=== PATIENT | male | born 2000 | race Caucasian/White ===

== ENCOUNTER 2023-01-21 11:37 | Emergency (ER) | payer OTHER, SELFPAY ==
[2023-01-21 11:56] VITALS: BP 150/91; PULSE 72; RESP 18; TEMP 36.6; O2SAT 100
--- NOTE | 2023-01-21 12:13 | ED.EAR ---
HPI - Ear Problem General Chief complaint: Ear Stated complaint: lt ear pain Time Seen by Provider: 01/21/23 12:13 Source: patient Mode of arrival: ambulatory Limitations: no limitations History of Present Illness HPI Narrative: 22 y/o male presented for c/o left ear pain since last night. States pain is sharp and shooting. Endorses sinus congestion for about 3 days. Taking flonase for symptoms. Denies tinnitus, dizziness, n/v/d/f/c. MD Complaint: ear pain Related Data Home Medications Medication Instructions Recorded Confirmed albuterol sulfate 90 mcg/actuation 2 puff inhalation PRN Shortness of 01/21/23 01/21/23 aerosol inhaler breath Allergies Allergy/AdvReac Type Severity Reaction Status Date / Time No Known Drug Allergies Allergy Unknown none Verified 01/21/23 12:01 Review of Systems Review of Systems: CONSTITUTIONAL: Denies malaise, chills, or fever. EYES: Denies visual changes, redness, or discharge. ENT: Denies and sore throat. Reports ear pain, rhinorrhea, congestion, pressure CARDIOVASCULAR: Denies chest pain, palpitations, or edema. RESPIRATORY: Denies cough or dyspnea. SKIN: Denies rash or itching. MUSCULOSKELETAL: Denies myalgia. NEUROLOGIC: Denies headache. All systems reviewed & are unremarkable except as noted in HPI and below PMFSH Past Medical History Medical History (Updated 01/21/23 @ 12:31 by Nayeli Leon, INS[employer]ANCE [employer]ENT) No pertinent past medical history Comments At time of signature, agree with nursing past medical, surgical, social and family history. There is no relevant family history pertinent to the presenting complaint Exam Narrative: GENERAL: Well-appearing, well-nourished, and in no acute distress. HEAD: Normocephalic EYES: PERRLA, conjunctivae clear ENT: Nares clear. Mucous membranes moist. Right TM pearly tracey with dull light reflex; Left TM erythematous and bulging; no tragal or mastoid tenderness. Oropharynx normal NECK: Supple. No lymphadenopathy CHEST: Clear to auscultation, breath sounds equal. HEART: Regular rate and rhythm. No murmur heard. SKIN: Warm, dry, no rash. NEURO: Alert and oriented x3. PSYCH: Normal mood and affect Course Course Emergency Course: Patient is aware of diagnosis, understands and agrees to treatment plan. Anticipatory guidance given. Patient agrees to follow-up as directed and is aware of reasons to seek care at the emergency department. Portions of this record may have been created with voice recognition software Level of Care: Express Care Visit Vital Signs Vital signs: Vital Signs Temperature 97.9 F 01/21/23 11:56 Pulse Rate 72 01/21/23 11:56 Respiratory Rate 18 01/21/23 11:56 Blood Pressure 150/91 H 01/21/23 11:56 Pulse Oximetry 100 01/21/23 11:56 Oxygen Delivery Room Air 01/21/23 11:56 Temperature 97.9 F 01/21/23 11:56 Pulse Rate 72 01/21/23 11:56 Respiratory Rate 18 01/21/23 11:56 Blood Pressure 150/91 H 01/21/23 11:56 Pulse Oximetry 100 01/21/23 11:56 Oxygen Delivery Room Air 01/21/23 11:56 Reviewed Medical Decision Making MDM Narrative Medical decision making narrative: Left AOM. Advised supportive measures and signs/symptoms to go to the ER. Patient is appropriate for outpatient treatment and follow-up. Differential Diagnosis Differential Diagnosis: Coronavirus, strep pharyngitis, allergic rhinitis, upper respiratory tract infection, sinusitis, rhinosinusitis, nasopharyngitis, viral pharyngitis, otitis media, otitis externa, eustachian tube dysfunction, foreign body, cerumen impaction. Vital Signs Vital Signs: Vital Signs Temperature 97.9 F 01/21/23 11:56 Pulse Rate 72 01/21/23 11:56 Respiratory Rate 18 01/21/23 11:56 Blood Pressure 150/91 H 01/21/23 11:56 Pulse Oximetry 100 01/21/23 11:56 Oxygen Delivery Room Air 01/21/23 11:56 Temperature 97.9 F 01/21/23 11:56 Pulse Rate 72 01/21/23 11:56 Respiratory Rate 18 01/21/23 11:56 Blood Pressur
== END 2023-01-21 12:23 | disposition home or self-care (01) ==
PROVIDERS: Emergency Provider Nurse Practitioner Family
DX: H66.002 Acute suppurative otitis media without spontaneous rupture of ear drum, left ear (principal)
CPT/HCPCS: 99213; G0463

== ENCOUNTER 2024-02-01 09:42 | Emergency (ER) | payer OTHER, SELFPAY ==
--- NOTE | 2024-02-01 09:58 | ED.EAR ---
HPI - Ear Problem General Chief complaint: Ear Stated complaint: lt ear discomfort, blister on bottom of rt foot Time Seen by Provider: 02/01/24 10:06 Source: patient Mode of arrival: ambulatory Limitations: no limitations History of Present Illness HPI Narrative: 23 y/o male presented for c/o Left ear pain x2 days. Endorses sinus congestion and drainage and cough x4 days.Symptoms started after airplane ride. Pt has used DayQuil, NyQuil, Mucinex and Flonase. Also using neb treatments for hx asthma. Denies sob, wheezing, n/v/d/f/c. Also reports a broken blister to bottom of the right foot for over one week. Started as a fluid filled blister after walking in loose shoes in the rain. Denies swelling, redness, or drainage. States he has some discomfort when walking on it. MD Complaint: ear pain Related Data Home Medications Medication Instructions Recorded Confirmed albuterol sulfate 90 mcg/actuation 2 puff inhalation PRN PRN 01/21/23 02/01/24 aerosol inhaler Shortness Of Breath Or Wheezing Allergies Allergy/AdvReac Type Severity Reaction Status Date / Time No Known Drug Allergies Allergy Unknown none Verified 02/01/24 09:54 Review of Systems Review of Systems: CONSTITUTIONAL: Denies malaise, chills, or fever. EYES: Denies visual changes, redness, or discharge. ENT: Denies sore throat. Reports ear pain, rhinorrhea, congestion, sinus pain CARDIOVASCULAR: Denies chest pain, palpitations, or edema. RESPIRATORY: Denies dyspnea. GASTROINTESTINAL: Denies abdominal pain, nausea, vomiting, diarrhea SKIN: Denies rash or itching. MUSCULOSKELETAL: Denies myalgia. NEUROLOGIC: Denies headache. All systems reviewed & are unremarkable except as noted in HPI and below PMFSH Past Medical History Medical History Asthma No pertinent past medical history Surgical History Surgical History History of wisdom tooth extraction Family History Family History Father Hypertension Diabetes mellitus Mother Hypertension Social History Social History Smoking status: Never smoker Alcohol intake: current Substance use: never Living arrangements: with family Occupation/Education: occupation Gender identity (if verbalized by the patient): Male Comments At time of signature, agree with nursing past medical, surgical, social and family history. There is no relevant family history pertinent to the presenting complaint Exam Narrative: GENERAL: Well-appearing, well-nourished, and in no acute distress. EYES: PERRLA, conjunctivae clear ENT: Nasal congestion noted. Mucous membranes moist. Right TM pearly tracey with dull light reflex; left TM erythematous, bulging and intact; canal not erythematous, no drainage, no tragal tenderness. Oropharynx not erythematous without lesions. Hoarse voice. NECK: Supple. No lymphadenopathy CHEST: Clear to auscultation, breath sounds equal. No wheezing, rhonchi, rales, or stridor. No respiratory distress, speaks in full sentences. HEART: Regular rate and rhythm. No murmur heard. SKIN: Warm, dry, right foot plantar surface with approx [id number] diameter ruptured blister, no drainage or erythema no signs of infection to site. NEURO: Alert and oriented x3. PSYCH: Normal mood and affect Course Course Emergency Course: Patient is aware of diagnosis, understands and agrees to treatment plan. Anticipatory guidance given. Patient agrees to follow-up as directed and is aware of reasons to seek care at the emergency department. Portions of this record may have been created with voice recognition software Level of Care: Express Care Visit Vital Signs Vital signs: Reviewed Medical Decision Making MDM Narrative Medical decision making narrative: Influenza positive. Results rev
[2024-02-01 10:04] VITALS: BP 155/95; PULSE 101; RESP 16; TEMP 38.1; O2SAT 97
== END 2024-02-01 10:40 | disposition home or self-care (01) ==
PROVIDERS: Emergency Provider Nurse Practitioner Family; PCP Family Medicine
DX: J10.1 Influenza due to other identified influenza virus with other respiratory manifestations (principal); H66.002 Acute suppurative otitis media without spontaneous rupture of ear drum, left ear; S90.821A Blister (nonthermal), right foot, initial encounter; X58.XXXA Exposure to other specified factors, initial encounter; Z20.822 Contact with and (suspected) exposure to COVID-19; J45.909 Unspecified asthma, uncomplicated
CPT/HCPCS: 87426; 87804; 99213; G0463